=== PATIENT | male | born 1990 | race Caucasian/White ===

== ENCOUNTER 2016-12-31 21:43 | Emergency (ER) | payer OTHER ==
[~2016-12-31] VITALS: Ht 182.9 cm; Wt 74.2 kg
[2016-12-31 21:48] VITALS: BP 147/101
== END 2016-12-31 23:16 | disposition home or self-care (01) ==
LOC: EME 21:43
PROC: 09QKXZZ Repair Nasal Mucosa and Soft Tissue, External Approach (ICD-10-PCS; principal; 2016-12-31)
DX: S01.21XA Laceration without foreign body of nose, initial encounter (principal); W22.8XXA Striking against or struck by other objects, initial encounter; W45.8XXA Other foreign body or object entering through skin, initial encounter
CPT/HCPCS: 99281; 99283